=== PATIENT | female | born 1945 | race Caucasian/White ===

== ENCOUNTER → 2022-05-20 | Outpatient (CLI) | payer MEDICARE ==
[~2022-05-20] MED LIST: AMLO10 PO; ATOR40TA PO; CODACE30 PO; DULO30 PO; GABA100 PO; LOSA50 PO
== END | disposition home or self-care (01) ==
LOC: LAB SHORT 15:56 → LAB 15:56
DX: R35.0 Frequency of micturition (principal)
CPT/HCPCS: 87077; 87086; 87186

== ENCOUNTER 2022-05-31 12:00 | Day surgery (SDC) | payer MEDICARE, OTHER ==
[~2022-05-31] VITALS: Ht 157.5 cm; Wt 92.5 kg
[2022-05-31] VITALS (14 sets, daily range): BP systolic 135–162; BP diastolic 73–94
--- NOTE | 2022-05-31 14:40 | NUR ---
FIRST IV ATTEMPTED IN LEFT WRIST. VEIN BLEW. ATTEMPTED BY MATI. SECOND ATTEMPT IN LEFT UPPER ARM WITH 20G BY NEMESIO, VEIN BLEW. THIRD IV ATTEMPTED IN LEFT HAND 22G BY NEMESIO VEIN BLEW. FOURTH ATTEMPT IN RIGHT HAND WITH 22G IV BY KADE SALAZAR, VEIN BLEW. PT TOLERATED WELL.
--- NOTE | 2022-05-31 14:42 | NUR ---
PT VERY UNSTEADY ON HER FEET. WAS ABLE TO STAND AT SCALE WITH ASSISTANCE. PT BROUGHT TO UNIT VIA W/C. SHE HAS VERY LIMITED MOVEMENT OF RIGHT ARM AND SHOULDER DUE TO FALLING IN JULY OF 2021 AND SURGERY ON SHOULDER. NERVE PAIN REPORTED WHEN MOVING RIGHT ARM. PATIENT REPORTS BEING INCONTINENT, BRIEFS LEFT IN PLACE FOR OPERATING ROOM. History, Chart, Medications and Allergies reviewed before start of procedure. Lungs clear T/O to Auscultation. Patient confirms NPO status and agrees with scheduled surgery. Pre-Op teaching done. Pt verbalizes understanding. GLASSES REMOVED FROM PATIENT AND PLACED IN PACU.
--- NOTE | 2022-05-31 18:42 | NUR ---
POST OP: REPORT RECEIVED FROM SARAH, MESS ATTENDANT CREW. PT TO UNIT AT 1815. PT IS A/O, VSS. SURGICAL SITE WNL, POLAR PAC IN PLACE. CALL LIGHT IN REACH
[2022-06-01 03:59] VITALS: BP 138/78
[2022-06-01 04:51] LABS: BASOPHILS ABSOLUTE AUTO 0.01 K/mm3 (0.00-0.23); BASOPHILS PERCENT AUTO 0 % (0-2); EOSINOPHILS PERCENT AUTO 0 % (0-6); Hematocrit 32.7 % (33.0-51.0); Hemoglobin 10.9 g/dL (11.5-16.0); IMMATURE GRAN ABSOLUTE AUTO 0.05 K/mm3 (0.00-0.10); IMMATURE GRAN PERCENT AUTO 0 % (0-1); LYMPHOCYTES ABSOLUTE AUTO 0.96 K/mm3 (0.84-5.20); LYMPHOCYTES PERCENT AUTO 7 % (21-46); MONOCYTES PERCENT AUTO 4 % (4-13); Mean Corpuscular HGB 30.7 pg (26.0-34.0); Mean Corpuscular HGB Conc 33.3 g/dL (31.5-36.5); Mean Corpuscular Volume 92 fL (80-100); Mean Platelet Volume 9.9 fL (9.1-12.4); NEUTROPHILS ABSOLUTE AUTO 12.37 K/mm3 (1.96-9.15); NEUTROPHILS PERCENT AUTO 89 % (41-73); Platelet Count 195 K/mm3 (150-400); RDW Coefficient Variation 13.1 % (11.7-14.2); Red Blood Cell Count 3.55 M/mm3 (3.80-5.20); White Blood Cell Count 13.89 K/mm3 (4.00-11.30)
[2022-06-01 05:11] LABS: Bun/Creatinine Ratio 35.7 (12.0-20.0); Calcium, Blood 8.8 mg/dL (8.5-10.1); Creatinine, Blood 0.62 mg/dL (0.40-1.00); Magnesium, Blood 2.1 mg/dL (1.6-2.4); Potassium, Blood 4.3 mmol/L (3.5-5.5)
[2022-06-01 07:13] VITALS: BP 151/85
--- NOTE | 2022-06-01 10:20 | NUR ---
PT COMPLAINS OF NEW INTERMITTENT MUSCLE SPASMS IN R KNEE. WILL MEDICATE PER EMAR
--- NOTE | 2022-06-01 15:30 | NUR ---
PT ATTANDS CHANGED. PUREWICK REQUESTED BY PT. PUREWICK HOOKED TO SUCTION AND PLACED AFTER NEW ATTENDS PUT ON. OSEI AREA CLEANED. PT STOOD USING FRONT WHEELED WALKER AND GAIT BELT. 2 PERSON ASSIST FOR STANDING AND OSEI CARE.
[2022-06-01 15:52] VITALS: BP 148/64
--- NOTE | 2022-06-01 16:58 | NUR ---
SHIFT SUMMARY PT POD 1 R TOTAL KNEE. A&0X4, PT SLIGHTLY HARD OF HEARING. PT WEENED OFF SUPPLEMENTAL O2 PER PERVIOUS NOTE. VISITED BY PT TWICE THROUGHOUT THE DAY. PT 2 PERSON ASSIST FOR AMBULATION. PUREWICK PLACED PER PT REQUEST FOR INCONTINENCE. PT COMPLAINED OF MUSCLE SPASMS IN KNEE. MEDICATED PER EMAR. AUQACEL DRESSING IN PLACE, NO SIGNS OF DRAINAGE. POLAR PACK IN USE ON R KNEE FOR PAIN RELIEF. PT IN CHAIR RESTING, WITH CALL LIGHT IN PLACE. WILL REPORT TO NOC SHIFT.
[2022-06-01 19:31] VITALS: BP 127/67
--- NOTE | 2022-06-02 03:55 | NUR ---
SHIFT SUMMERY. PT HAS GOOD CMS TO RIGHT FOOT . PT HAS ICE TO KNEE. PT WAS SITTING UP IN THE RECLINER FOR SOME TIME THEN WAS HELPED BACK TO BED. PT HAS BEEN RESTING IN BED TRYING TO SLEEP . CALL LIGHT IN [facility] BED ALARM ON.
[2022-06-02 04:34] VITALS: BP 171/73
[2022-06-02 07:35] VITALS: BP 156/72
[2022-06-02 15:13] VITALS: BP 132/76
--- NOTE | 2022-06-02 15:49 | NUR ---
SHIFT SUMMARY POD2 R TKA, A/OX4, VSS, TOLERATING PO, INCONTINENT OF BLADDER WITH PUREWICK IN PLACE, MINIMAL ACTIVITY WITH MOBILITY AND THERAPY DUE TO PATIENT NOT BEING ABLE TO TOLERATE IT VERY WELL, THERAPY RECOMMENDING HH AT DC PENDING FAMILY ABILITY TO HELP ASSIST AT HOME. DISCUSSED PATIENT STILL BEING HERE AND NOT CLEARING THERAPY YESTERDAY AND THE POSSIBILITY OF HH AT DC. PT RELUCTANT TO SPEND MUCH TIME OUT OF BED BUT ENCOURAGED TO BE UP MUCH SHE IS ABLE TO TOLERATE. IS PROVIDED AND PT EDUCATED ON ITS USE. PAIN MANAGED PER EMAR. NO ACUTE EVENTS THIS SHIFT, CALL LIGHT IN REACH, REPORT GIVEN TO RECEIVING RN TO ASSUME CARE FOR THE REMAINDER OF THE SHIFT.
[2022-06-02 19:39] VITALS: BP 164/65
[2022-06-02 20:09] VITALS: BP 140/95
[2022-06-03 04:31] VITALS: BP 166/79
--- NOTE | 2022-06-03 05:05 | NUR ---
SUMMARY: PATIENT AOX4. NO ACUTE EVENTS OVERNIGHT. PATIENT INC IN BED PURE WIC IN PLACE. PATIENT DID NOT WANT TO GET OUT OF BED TO COMMODE. BP ELEVATED THIS MORNING. NOTIFIED DR. CORRALVED ORDERS TO GIVE BP MEDS EARLY THIS MORNING. VSS OTHERWISE. EDEMA NOTED TO R KNEE AND HIP. ICE MACHINE APPLIED TO LEG OVERNIGHT. PATIENT REPORTS NO PAIN WHILE RESTING THIS MORNING. PAIN MEDS GIVEN PER EMAR. BED ALARM ON. CALL LIGHT IN REACH.
[2022-06-03 07:29] VITALS: BP 167/77
[2022-06-03 14:49] VITALS: BP 164/74
[2022-06-03] MEDS ORDERED: ACET500 PO (15:21)
[2022-06-03] MEDS ORDERED: ASPI81CH PO (15:22)
[2022-06-03] MEDS ORDERED: OXYC5 PO (15:22)
== END 2022-06-03 17:58 | disposition home health service (06) ==
LOC: ORSCMMR 12:00 → SURS 18:28 → ORSCMMR 06-03 17:58
PROVIDERS: Orthopaedic Surgery
PROC: 0SRC0J9 Replacement of Right Knee Joint with Synthetic Substitute, Cemented, Open Approach (ICD-10-PCS; principal; 2022-05-31 14:00)
PROC: 8E0Y0CZ Robotic Assisted Procedure of Lower Extremity, Open Approach (ICD-10-PCS; principal; 2022-05-31 14:00)
DX: M17.11 Unilateral primary osteoarthritis, right knee (principal); I10 Essential (primary) hypertension; I25.10 Atherosclerotic heart disease of native coronary artery without angina pectoris; E78.5 Hyperlipidemia, unspecified; I25.2 Old myocardial infarction; Z86.718 Personal history of other venous thrombosis and embolism; Z79.899 Other long term (current) drug therapy; E66.9 Obesity, unspecified; Z68.37 Body mass index [BMI] 37.0-37.9, adult
CPT/HCPCS: 27447; 20985; S2900; 36415; 73560-RT; 80048; 83735; 85025; 97110; 97116; 97161; 97530; A9270; C1713; C1776; J0171; J0690; J0735; J1100; J1885; J2370; J2405; J2704; J2795; J3010; J7120

== ENCOUNTER 2022-08-22 14:18 | Emergency (ER) | payer MEDICARE, OTHER | END 2022-08-22 21:39 | disposition home or self-care (01) | LOC: ER 14:18 | DX: S80.12XA Contusion of left lower leg, initial encounter (principal); Z86.711 Personal history of pulmonary embolism; Z79.82 Long term (current) use of aspirin; W22.8XXA Striking against or struck by other objects, initial encounter ==

== ENCOUNTER 2024-06-17 18:13 | Observation (INO) | payer MEDICARE, OTHER ==
[~2024-06-17] VITALS: Ht 160 cm; Wt 84.0 kg
[~2024-06-17 18:13] MED LIST changes: +ACET500 PO; +ASPI81CH PO; +OXYC5 PO
[2024-06-17] MEDS ORDERED: Ondansetron HCl 2 MG / ML 2ML Vial IV ONE (18:30)
[2024-06-17] MEDS ORDERED: Nitroglycerin 0.4 MG SUBL SL ONE (18:30)
[2024-06-17 18:49] LABS: BASOPHILS ABSOLUTE AUTO 0.06 K/mm3 (0.00-0.23); BASOPHILS PERCENT AUTO 1 % (0-2); EOSINOPHILS PERCENT AUTO 3 % (0-6); Hematocrit 32.8 % (33.0-51.0); Hemoglobin 9.5 g/dL (11.5-16.0); IMMATURE GRAN ABSOLUTE AUTO 0.01 K/mm3 (0.00-0.10); IMMATURE GRAN PERCENT AUTO 0 % (0-1); LYMPHOCYTES ABSOLUTE AUTO 2.37 K/mm3 (0.84-5.20); LYMPHOCYTES PERCENT AUTO 36 % (21-46); MONOCYTES ABSOLUTE AUTO 0.65 K/mm3 (0.16-1.47); MONOCYTES PERCENT AUTO 10 % (4-13); Mean Corpuscular Volume 73 fL (80-100); Mean Platelet Volume 9.7 fL (9.1-12.4); NEUTROPHILS ABSOLUTE AUTO 3.31 K/mm3 (1.96-9.15); NEUTROPHILS PERCENT AUTO 50 % (41-73); Platelet Count 326 K/mm3 (150-400); RDW Coefficient Variation 17.7 % (11.7-14.2); RDW Standard Deviation 46.7 fL (35.1-46.3); Red Blood Cell Count 4.52 M/mm3 (3.80-5.20)
[2024-06-17 19:26] LABS: Albumin, Blood 3.3 g/dL (3.4-5.0); Albumin/Globulin Ratio 0.9 (0.8-1.8); Bilirubin, Total 0.3 mg/dL (0.1-1.0); Bun/Creatinine Ratio 22.2 (12.0-20.0); Calcium, Blood 9.1 mg/dL (8.5-10.1); Creatinine, Blood 0.68 mg/dL (0.40-1.00); Globulin, Blood 3.6 g/dL (2.2-4.0); Potassium, Blood 3.4 mmol/L (3.5-5.5); Total Protein, Blood 6.9 g/dL (6.4-8.2)
[2024-06-17] MEDS ORDERED: Ondansetron HCl 2 MG / ML 2ML Vial IV PRN (21:10)
[2024-06-17] MEDS ORDERED: CARVEDILOL25 M1 PO (21:31)
[2024-06-17] MEDS ORDERED: Norco 7.5-3251 EACH PO (21:32)
[2024-06-17] MEDS ORDERED: GABA300 PO (21:33)
[2024-06-17] MEDS ORDERED: ELIQUIS5 M2 PO (21:35)
[2024-06-17] MEDS ORDERED: Potassium Chloride 20 MEQ/15 ML UDC PO ONE (22:00)
[2024-06-17] MEDS ORDERED: Atorvastatin 40 MG Tab PO SCH (22:00)
[2024-06-17] MEDS ORDERED: Potassium Chloride 20 MEQ TabCR PO ONE (22:00)
[2024-06-17 22:20] VITALS: BP 150/83
--- NOTE | 2024-06-17 22:50 | NUR ---
ADMIT NOTE 78 YR OLD FEMALE ADMITTED TO FLOOR FROM THE ED WITH DX OF CHEST PAIN. HAD RECEIVED MEDS/NITRO IN THE ED, DENIES CHEST PAIN/PAIN AT THIS TIME. ALERT TO QUESTIONS ASKED. CAME UP WITH FAMILY MEMBERS BUT THEY SOON LEFT AFTER PT CHECKED IN. ALERT AND ORIENTED X 4. SKIN CHECK WNL. ORIENTED TO USE OF CALL LIGHT AND BED CONRTOL. RAILS UP X 2 AND BED IN LOW POSITION FOR SAFEATY. HOOKED UP TO LEVAR DAUGHTER VOICED PT INCONT. PT PREFERRED IT WELL. WILL CONT TO MONITOR. VSS.
[2024-06-18] VITALS (8 sets, daily range): BP systolic 135–190; BP diastolic 65–103
--- NOTE | 2024-06-18 04:07 | NUR ---
SYNTHETIC PLASTERER SUMMARY WAS ADMITTED EARLIER IN THE SHIFT WITH DX OF CHEST PAIN. HAD RECEIVED NITRO IN THE ED AND CHEST PAIN WAS ALEVIATED. ALTHOUGH BP ELEVATED AT INTERVALS WHILE ON THE FLOOR, HAS DENIED CHEST PAIN THROUGHOUT SHIFT. HAS BEEN RESTING QUIETLY WITH PUREWICK IN USE FOR INCONT OF URINE. OTHERWISE VSS. CALL LIGHT IN REACH, RAILS UP X 2 AND BED IN LOW POSITION FOR SAFETY. WILL CONT TO MONITOR.
[2024-06-18] MEDS ORDERED: Labetalol HCL 5 MG/ML 4ML Injection (Single Dose) IV ONE (04:45)
--- NOTE | 2024-06-18 05:30 | NUR ---
MD NOTIFIED OF ELEVATED BP AND HR. ORDERED LABETALOL 10 MG IV X 1. MED GIVEN. WILL MONITOR/FOLLOW UP - SEE DOCUMENTATION FOR RESULTS.
[2024-06-18] MEDS ORDERED: Gabapentin 100 MG Cap PO PRN (07:35)
[2024-06-18] MEDS ORDERED: HYDROcodone 7.5-APAP 325 TAB PO PRN (07:40)
[2024-06-18] MEDS ORDERED: NS 1,000 ML IV SCH (07:40)
[2024-06-18] MEDS ORDERED: Naloxone HCl 0.4MG / ML 1ML Vial IV PRN (07:45)
[2024-06-18] MEDS ORDERED: HydrALAZINE HCl 20 MG / ML 1ML Vial IV PRN (07:45)
[2024-06-18] MEDS ORDERED: Carvedilol 25 MG Tab PO SCH (08:00)
[2024-06-18 08:17] LABS: Bun/Creatinine Ratio 20.5 (12.0-20.0); Calcium, Blood 9.2 mg/dL (8.5-10.1); Creatinine, Blood 0.58 mg/dL (0.40-1.00); Potassium, Blood 3.6 mmol/L (3.5-5.5)
[2024-06-18] MEDS ORDERED: Cephalexin Monohydrate 500 MG Cap PO SCH (09:00)
[2024-06-18] MEDS ORDERED: Aspirin 81 MG Chew PO SCH (09:00)
[2024-06-18] MEDS ORDERED: Losartan Potassium 50 MG Tab PO SCH (09:00)
[2024-06-18] MEDS ORDERED: Apixaban 5 MG Tab PO SCH (09:00)
[2024-06-18] MEDS ORDERED: AmLODIPine Besylate 5 MG Tab PO SCH (09:00)
[2024-06-18] MEDS ORDERED: DULoxetine HCL 60 MG Capsule DR PO SCH (09:00)
[2024-06-18] MEDS ORDERED: HYDROmorphone HCl/Pf 1MG SYR IV PRN (13:45)
[2024-06-18] MEDS ORDERED: Pantoprazole Sodium 40 MG Tab PO SCH (16:30)
--- NOTE | 2024-06-18 18:53 | NUR ---
SHIFT SUMMARY: PT A&O X4. OCCASIONALLY FORGETFUL. PLEASANT AND COOPERATIVE WITH CARE. INCONTINENT OF URINE. 2PA c FWW AND GB. PT HAS NOT C/O CHEST PAIN THIS SHIFT. CT ABDOMEN COMPLETED SHOWING MODERATE HIATAL HERNIA. PROTONIX STARTED THIS AFTERNOON. PT C/O 8/10 BACK PAIN THIS SHIFT. PT UNABLE TO TOLERATE PO MEDICATIONS. IV DILAUDID ORDERED FOR PT AND TOLERATED WELL. PT TOLERATED PO MEDICATIONS CRUSHED IN CHOCOLATE PUDDING WITH AFTERNOON MEDICATIONS. NEW IV PLACED IN RAC INFUSING NORMAL SALINE X2 BAGS. NPO AFTER MIDNIGHT FOR STRESS TEST. XRAY BACK COMPLETED THIS EVENING. CALL LIGHT IN REACH. BED IN LOWEST POSITION. FAMILY AT BEDSIDE.
[2024-06-18] MEDS ORDERED: Gabapentin 100 MG Cap PO SCH (21:00)
--- NOTE | 2024-06-19 04:30 | NUR ---
SHIFT SUMMARY: PT IS ALERT AND ORIENTED, [place] AND SLOW TO RESPOND AT TIMES. PT IS CALM AND COOPERATIVE WITH CARE. FAMILY AT THE BEDSIDE START OF SHIFT. PT REPORTS PAIN ON ONE OCCASION, MEDICATING PER EMAR. PT DENIES NAUSEA, VOMITING AND SOB. PT SLEPT MUCH OF THE NIGHT WHEN NOT DISTURBED. NPO FOR STRESS TEST TODAY. BED IN LOW POSITION, CALL LIGHT WITHIN REACH. WILL CONTINUE TO MONITOR.
[2024-06-19 04:55] VITALS: BP 152/75
[2024-06-19 04:58] LABS: Hematocrit 30.1 % (33.0-51.0); Hemoglobin 8.6 g/dL (11.5-16.0)
[2024-06-19 05:54] LABS: Bun/Creatinine Ratio 17.8 (12.0-20.0); Calcium, Blood 8.7 mg/dL (8.5-10.1); Creatinine, Blood 0.79 mg/dL (0.40-1.00); Magnesium, Blood 2.1 mg/dL (1.6-2.4); Potassium, Blood 3.8 mmol/L (3.5-5.5)
[2024-06-19 07:47] VITALS: BP 132/79
[2024-06-19] MEDS ORDERED: Methocarbamol 500 MG Tab PO SCH (09:00)
[2024-06-19] MEDS ORDERED: Regadenoson 0.4 MG/5 ML SYRINGE ONE (09:17)
[2024-06-19] MEDS ORDERED: Caffeine Citrated 60 MG/3 ML Vial ONE (09:17)
[2024-06-19] MEDS ORDERED: Albuterol 2.5 MG/3 ML VIAL INH ONE (09:40)
[2024-06-19 12:06] VITALS: BP 160/87
--- NOTE | 2024-06-19 14:09 | NUR ---
ASSUMED CARE OF PT A/O X3 WITH FLAT AFFECT AND SLOW TO RESPOND, PT IS APPROPRIATE AND AWITING STRESS TEST TODAY, I DISCUSSED WITH PT HER NEED TO GAIN BACK HER STRENGTH SO PURWIC WAS REMOVED, PT STATED UNDERSTANDING ABOUT NEEDING TO CALL IF WANTING TO USE THE BSC. PT HAS CALL LIGHT AND MAKES NEEDS KNOWN.
--- NOTE | 2024-06-19 14:12 | NUR ---
0920 PT TAKEN DOWNSTAIRS FOR FIRST SET OF STRESS IMAGES. PT RETURNED AT 0940 AND ADAM RN WAS AT BEDSIDE TO CONDUCT TEST. PT TEST LIMITED DUE TO PT NAUSEA, TREATED WITH ZOFRAN. 1100 PT TAKEN FOR FINAL IMAGES.
[2024-06-19] MEDS ORDERED: PANT20 PO (16:52)
[2024-06-19] MEDS ORDERED: CEPH500 PO (16:52)
--- NOTE | 2024-06-19 18:34 | NUR ---
DAUGHTER AT BEDSIDE SIDE REQUESTING RESULTS AND INSISTING THAT IF THERE IS NOTING WRONG IF THEY COULD BE DISCHARGED. PT ALSO WAS REQUESTING TO LEAVE. PT ALSO REFUSED TO HAVE VITAL SIGNS DONE, SO I NOTRIFIED THE MD, NOTED RESULTS WERE NEGATIVE FOR PT AND DISCHARGE ORDERS WERE GIVEN AND IMPLEMENTED . IV DCED.M PT TAKEN VIA WHEEL CHAIR
== END 2024-06-19 18:05 | disposition home or self-care (01) ==
LOC: ER 18:13 → MEDS 18:14
PROVIDERS: Emergency Medicine; Hospitalist; ADMIT Student in an Organized Health Care Education/Training Program
DX: I25.118 Atherosclerotic heart disease of native coronary artery with other forms of angina pectoris (principal); K44.9 Diaphragmatic hernia without obstruction or gangrene; I10 Essential (primary) hypertension; E78.5 Hyperlipidemia, unspecified
CPT/HCPCS: 36415; 71046; 71260; 72040; 74177; 78452; 80048; 80053; 83690; 83735; 84484; 85014; 85018; 85025; 85379; 93005; 93010; 93017; 94640; 94664; 96374; 96375; 96376; 97161; 97530; 99285-25; A9270; A9500; G0378; J0360; J0706; J1171; J2405; J2785; J7030; Q9967

== ENCOUNTER → 2024-10-04 | Outpatient (CLI) | payer MEDICARE, OTHER ==
[~2024-10-04] MED LIST changes: +CARVEDILOL25 M1 PO; +CEPH500 PO; +ELIQUIS5 M2 PO; +GABA300 PO; +Norco 7.5-3251 EACH PO; +PANT20 PO
== END ==
LOC: LAB 12:02 → LAB SHORT 12:02
DX: R30.0 Dysuria (principal)
CPT/HCPCS: 87077; 87086; 87186

== ENCOUNTER → 2024-10-20 | Outpatient (CLI) | payer MEDICARE, OTHER ==
[2024-10-20 14:21] LABS: Source, Urine Clean Catch
[2024-10-20 14:30] LABS: Bilirubin, Urine Neg (Neg); Color, Urine Yellow (P-Yellow); Glucose Qualitative, Urine Neg (Normal); Ketones, Urine Neg (Neg); Leukocyte Esterase, Urine 2+ (Neg); Protein, Urine Neg (Neg); Red Blood Cells, Urine Not Seen /hpf (0-2); Specific Gravity, Urine 1.015 (1.003-1.022); Urobilinogen, Urine NORM (Normal); White Blood Cells, Urine 0-2 /hpf (0-5)
== END ==
LOC: LAB 12:30 → LAB SHORT 12:30
PROVIDERS: Physician Assistant
DX: R82.90 Unspecified abnormal findings in urine (principal)
CPT/HCPCS: 81001; 87086

== ENCOUNTER 2024-12-08 12:41 | Day surgery (SDC) | payer MEDICARE, OTHER ==
[~2024-12-08] VITALS: Ht 160 cm; Wt 83.6 kg
[~2024-12-08 12:41] MED LIST changes: +Balanced Salt Epinephrine Irrigation Solution 500 mL IR SCH; +Moxifloxacin HCL 0.5 MG/0.1 ML 0.4MLSYR LEFTEYE SCH; +Ondansetron 4 MG SoluTab MM PRN; +PHENYLEPHRINE\\TROPICAMIDE\\TETRACAINE OPHTHALMIC DILATING SOLN LEFTEYE PRN; +Povidone-Iodine 450 DROP/30 ML Solution LEFTEYE SCH; +Triamcinolone Inj Susp 40 MG / ML 1ML Vial INJ SCH; +Triamcinolone Inj Susp 40 MG / ML 1ML Vial ONE
[2024-12-08] MEDS ORDERED: PERCOCET 10-321 EA10 PO (13:28)
[2024-12-08] MEDS ORDERED: Tetracaine HCl 0.5% Opth Soln 15 ml LEFTEYE ONE (13:49)
--- NOTE | 2024-12-08 13:54 | NUR ---
12/08/24 1354 Madeleine Kumar N 145/61 73 94% 10L BLOW BY O2 16
[2024-12-08 14:15] VITALS: BP 139/75
--- NOTE | 2024-12-08 14:15 | NUR ---
12/08/[address] IN TO SPEAK WITH PT
== END 2024-12-08 14:45 | disposition home or self-care (01) ==
LOC: ORSCSDS 12:41
PROVIDERS: Ophthalmology
PROC: 08RK3JZ Replacement of Left Lens with Synthetic Substitute, Percutaneous Approach (ICD-10-PCS; principal; 2024-12-08 14:00)
DX: H25.813 Combined forms of age-related cataract, bilateral (principal); I10 Essential (primary) hypertension; E78.5 Hyperlipidemia, unspecified; Z79.01 Long term (current) use of anticoagulants; Z79.899 Other long term (current) drug therapy; Z79.82 Long term (current) use of aspirin
CPT/HCPCS: A9270; J3301; V2632

== ENCOUNTER 2024-12-25 13:31 | Emergency (ER) | payer MEDICARE, OTHER | END 2024-12-25 18:13 | disposition home or self-care (01) | LOC: ER 13:31 | DX: R55 Syncope and collapse (principal); N39.0 Urinary tract infection, site not specified; R19.7 Diarrhea, unspecified; Z88.8 Allergy status to other drugs, medicaments and biological substances; Z79.01 Long term (current) use of anticoagulants; Z79.899 Other long term (current) drug therapy ==